=== PATIENT | female | born 1995 | race American Indian/Alaskan Native ===

== ENCOUNTER 2019-01-18 12:33 | Outpatient (CLI) | payer OTHER ==
[2019-01-18] MEDS ORDERED: PRENATAL TABLE1 EAC1 PO (12:46)
== END 2019-01-19 16:08 | disposition home or self-care (01) ==
LOC: OBS/DEL 12:33
DX: O46.8X3 Other antepartum hemorrhage, third trimester (principal); Z34.83 Encounter for supervision of other normal pregnancy, third trimester

== ENCOUNTER 2019-02-03 05:26 | Inpatient (IN) | payer OTHER ==
[~2019-02-03] VITALS: Ht 170.2 cm; Wt 98.0 kg
[~2019-02-03 05:26] MED LIST: PRENATAL TABLE1 EAC1 PO
== END 2019-02-07 13:15 | disposition home or self-care (01) | DRG 788 ==
LOC: LDR 05:26 → OB/GYN 05:26
PROVIDERS: ADMIT Obstetrics & Gynecology Obstetrics
PROC: 4A1HXCZ Monitoring of Products of Conception, Cardiac Rate, External Approach (ICD-10-PCS; 2019-02-03)
PROC: 3E0P7VZ Introduction of Hormone into Female Reproductive, Via Natural or Artificial Opening (ICD-10-PCS; 2019-02-04)
PROC: 3E033VJ Introduction of Other Hormone into Peripheral Vein, Percutaneous Approach (ICD-10-PCS; 2019-02-04)
PROC: 10D00Z1 Extraction of Products of Conception, Low, Open Approach (ICD-10-PCS; principal; 2019-02-04 15:00)
DX: O82 Encounter for cesarean delivery without indication (principal); O74.7 Failed or difficult intubation for anesthesia during labor and delivery; Z3A.37 37 weeks gestation of pregnancy; Z37.0 Single live birth; Z22.330 Carrier of Group B streptococcus